=== PATIENT | female | born 1960 | race Hispanic/Latino ===

== ENCOUNTER → 2018-08-04 | Outpatient (CLI) | payer BC ==
--- NOTE | 2018-08-04 15:39 | Diagnostic Imaging Report ---
Exam: Left wrist Series. History: Left breast cellulitis, left wrist pain, no history of trauma Comparison: None. Findings: 3 views of the left wrist. There is normal bone mineralization. Negative for acute, displaced fracture or dislocation. The joint spaces are preserved. No abnormal soft tissue calcification or mass. Questionable soft tissue swelling in the ulnar aspect of the wrist. Impression: 1. Questionable soft tissue swelling in the ulnar aspect of the wrist. No acute, displaced fracture or dislocation. Signed by: Dr. Alton Mix M.D. on 08/04/2018 3:35 PM
== END ==
LOC: RAD 11:35
PROVIDERS: ATTEND Family Medicine
DX: L03.114 Cellulitis of left upper limb (principal)

== ENCOUNTER → 2019-04-23 | Outpatient (CLI) | payer BC ==
--- NOTE | 2019-04-23 10:02 | Diagnostic Imaging Report ---
EXAM: US ABDOMEN COMPLETE DATE: 04/23/2019 8:51 AM INDICATION: Elevated liver enzymes COMPARISON: None TECHNIQUE: Transverse and longitudinal ferrara scale and color doppler sonographic images of the upper abdomen were obtained. FINDINGS: There is no evidence of fluid or masses seen in the area of clinical concern in the right lower quadrant. LIVER 10.8 cm in the right midclavicular line. Normal echogenicity of the liver with normal contour, no masses. SPLEEN 8.6 cm in maximum diameter. Normal echogenicity, no masses. GALLBLADDER No gallbladder wall thickening, distension, stone, or pericholecystic fluid. Negative reported sonographic Baird's sign. Gallbladder wall measures 1 mm BILE DUCTS No intra nor extra-hepatic biliary dilation. Common bile duct measures 3 mm. PANCREAS: Visualized portions are normal. RIGHT KIDNEY: 11.2 cm Echogenicity: Normal Collecting System: No hydronephrosis Stones: None Cyst/Mass: None LEFT KIDNEY: 11.6 cm Echogenicity: Normal Collecting System: No hydronephrosis Stones: None Cyst/Mass: None VESSELS: Aorta: Visualized portions are within normal size limits Inferior Vena Cava: Visualized portions are normal Main Portal Vein: 0.7 cm, normal size with hepatopetal flow. FREE FLUID: None IMPRESSION: Unremarkable abdominal ultrasound. Signed by: Marleen Torres MD on 04/23/2019 9:58 AM
== END ==
LOC: US 08:27
PROVIDERS: ATTEND Internal Medicine Gastroenterology
DX: R74.8 Abnormal levels of other serum enzymes (principal); E66.3 Overweight; Z71.3 Dietary counseling and surveillance
CPT/HCPCS: 76700

== ENCOUNTER → 2019-06-03 | Outpatient (CLI) | payer BC ==
[~2019-06-03] MED LIST: FENTANYL CITRATE/PF 100MCG/2 ML INJ ONE; MIDAZOLAM HCL 2 MG/2 ML VIAL ONE
[2019-06-03 09:02] LABS: BASOPHILS % 0.3 % (0.0-1.0); EOSINOPHILS # (AUTO) 0.2 (0.0-0.4); EOSINOPHILS % 5.5 % (0.0-6.0); HEMATOCRIT 41.3 % (34.2-44.1); HEMOGLOBIN 13.3 g/dL (12.0-16.0); LYMPHOCYTES # (AUTO) 1.1 (1.0-3.2); LYMPHOCYTES % 29.1 % (18.0-39.1); MEAN CORPUSCULAR HEMOGLOBIN 30.6 pg (28-32); MEAN CORPUSCULAR HGB CONC 32.2 g/dL (31-35); MEAN CORPUSCULAR VOLUME 95.2 fL (81-99); MONOCYTES # (AUTO) 0.5 (0.2-0.8); MONOCYTES % 12.5 % (4.4-11.3); NEUTROPHILS # (AUTO) 1.9 (2.1-6.9); NEUTROPHILS % 52.6 % (38.7-80.0); PLATELET COUNT 190 x10e3/uL (140-360); RED BLOOD COUNT 4.34 x10e6/uL (3.6-5.1); RED CELL DISTRIBUTION WIDTH 12.4 % (11.7-14.4)
[2019-06-03 09:42] LABS: INR 0.85; PROTHROMBIN TIME 12.1 seconds (11.9-14.5)
[2019-06-03 09:50] LABS: PARTIAL THROMBOPLASTIN TIME 29.6 seconds (23.8-35.5)
--- NOTE | 2019-06-03 11:09 | Diagnostic Imaging Report ---
PROCEDURE: Ultrasound-guided nonfocal liver biopsy Procedural Personnel Attending physician(s): Marleen Torres MD Fellow physician(s): None Resident physician(s): None Advanced practice provider(s): None Pre-procedure diagnosis: Abnormal liver function tests Post-procedure diagnosis: Same Indication: Organ dysfunction Previous biopsy of same target (QCDR): No Additional clinical history: None Complications: No immediate complications. IMPRESSION: Ultrasound-guided nonfocal right liver biopsy. Plan: Specimen(s) sent for evaluation. PROCEDURE SUMMARY: - Percutaneous US-guided nonfocal liver biopsy - Additional procedure(s): None PROCEDURE DETAILS: Pre-procedure Reference imaging for biopsy target: Abdominal ultrasound of 04/23/2019 Consent: Informed consent for the procedure including risks, benefits and alternatives was obtained and time-out was performed prior to the procedure. Preparation: The site was prepared and draped using maximal sterile barrier technique including cutaneous antisepsis. Anesthesia/sedation Level of anesthesia/sedation: Moderate sedation (conscious sedation) Anesthesia/sedation administered by: Independent trained observer under attending supervision with continuous monitoring of the patient?s level of consciousness and physiologic status Total intra-service sedation time (minutes): 30 Imaging prior to biopsy The patient was positioned left lateral decubitus oblique. Initial ultrasound was performed. Biopsy target: - Location: Right liver, nonfocal Other findings: None Biopsy Local anesthesia was administered. Under US guidance, the biopsy needle was advanced to the target and biopsy was performed. Coaxial needle: 17 gauge Core needle biopsy device: 18-gauge Linksy Core needle size: 18 gauge x 10cm Number of core specimens: 3 On-site biopsy touch preparation: No Additional sampling recommendations: None Preliminary assessment of sample adequacy: Not applicable Needle removal The biopsy needle was removed and a sterile dressing was applied. Tract embolization: None Imaging following biopsy Immediate post-biopsy ultrasound was performed. Post-biopsy imaging findings: No hematoma Additional Details Additional description of procedure: None Equipment details: None Specimens removed: Biopsy samples as detailed above Estimated blood loss (mL): Less than 10 Standardized report: [id number] Attestation Signer name: Marleen Torres MD I attest that I was present for the entire procedure. I reviewed the stored images and agree with the report as written. Signed by: Marleen Torres MD on 06/03/2019 11:06 AM
== END ==
LOC: US 08:20
PROVIDERS: ATTEND Internal Medicine Gastroenterology
DX: R74.8 Abnormal levels of other serum enzymes (principal); Z71.3 Dietary counseling and surveillance; E66.3 Overweight
CPT/HCPCS: 36415; 47000; 76942; 85025; 85610; 85730; 88307; 88313; J2250; J3010; 99152

== ENCOUNTER → 2019-07-20 | Outpatient (CLI) | payer BC ==
--- NOTE | 2019-07-20 12:37 | Diagnostic Imaging Report ---
EXAM: US ABDOMEN COMPLETE DATE: 07/20/2019 10:25 AM INDICATION: Abdominal pain COMPARISON: Abdominal ultrasound of 04/23/2019 TECHNIQUE: Transverse and longitudinal ferrara scale and color doppler sonographic images of the upper abdomen were obtained. FINDINGS: LIVER 10.2 cm in the right midclavicular line. Normal echogenicity of the liver with normal contour, no masses. SPLEEN 9.2 cm in maximum diameter. Normal echogenicity, no masses. GALLBLADDER No gallbladder wall thickening, distension, stone, or pericholecystic fluid. Negative reported sonographic Baird's sign. The gallbladder wall measures 3mm BILE DUCTS No intra nor extra-hepatic biliary dilation. Common bile duct measures 3mm PANCREAS: Visualized portions are normal. RIGHT KIDNEY: 10.4 cm Echogenicity: Normal Collecting System: No hydronephrosis Stones: None Cyst/Mass: None LEFT KIDNEY: 10.5 cm Echogenicity: Normal Collecting System: No hydronephrosis Stones: None Cyst/Mass: None VESSELS: Aorta: Visualized portions are within normal size limits Inferior Vena Cava: Visualized portions are normal Main Portal Vein: 0.6 cm, normal size with hepatopetal flow. FREE FLUID: None IMPRESSION: Unremarkable abdominal ultrasound. Signed by: Marleen Torres MD on 07/20/2019 12:34 PM
== END ==
LOC: US 10:20
PROVIDERS: ATTEND Family Medicine
DX: R10.9 Unspecified abdominal pain (principal)
CPT/HCPCS: 76700